=== PATIENT | male | born 1955 | race Caucasian/White ===

== ENCOUNTER 2018-11-05 12:33 | Inpatient (IN) ==
[2018-11-05] MEDS ORDERED: SODIUM CHLORIDE 0.9% 1,000 ML IV STA (13:09)
[2018-11-05 14:14] LABS: Basophils # 0.1 10*3/uL (0.0-0.2); Basophils % 0.8 % (0.0-0.8); Eosinophils # 0.6 10*3/uL (0.0-0.87); Eosinophils % 8.7 % (0.00-10.9); Hematocrit 22.7 VOL% (42.0-52.0); Immature Granulocytes % 0.5 %; Immature Granulocytes Absolute 0.03 #; Lymphocytes # 0.7 10*3/uL (1.4-4.0); Lymphocytes % 10.6 % (21.2-54.2); Mean Corpuscular HGB Conc 24.7 GM/DL (32-36); Mean Corpuscular Hemoglobin 13 PG (27-34); Mean Corpuscular Volume 54.3 FL (87-102); Monocytes # 0.5 10*3/uL (0.11-0.8); Monocytes % 8.1 % (1.7-12.7); NRBC # 0.02 10*3/uL; Neutrophils # 4.6 10*3/uL (1.4-7.4); Neutrophils % 71.3 % (38.7-73.9); Platelet Count 293 T/CUMM (130-400); Red Blood Count 4.18 MC/CUMM (3.8-5.5); White Blood Count 6.4 T/CUMM (4-12)
[2018-11-05 14:15] LABS: % Iron Saturation 1.9 % (18-50); Albumin 2.6 G/DL (3.4-5.0); Bilirubin,Total 0.4 MG/DL (0.2-1.0); Calcium 8.4 MG/DL (8.5-10.1); Ferritin 1.6 ng/ml (26-388); Osmolality,Calculated 275.7 MOS/KG (273-304); Potassium 3.3 MMOL/L (3.5-5.1); Thyroid Stimulating Hormone 0.566 uIU/ml (0.358-3.74)
[2018-11-05 14:16] LABS: Hemoglobin 5.6 GM/DL (14.0-18.0)
[2018-11-05 14:28] LABS: Folate 11.8 NG/ML (5.4-24.0); Vitamin B12 851 PG/ML (211-911)
[2018-11-05 15:11] LABS: Barbiturates Screen,Urine Negative (Negative); Benzodiazepines Screen,Urine Positive (Negative); Cannabinoid Screen,Urine Negative (Negative); Opiate Screen,Urine Positive (Negative); Phencyclidine Screen,Urine Negative (Negative)
[2018-11-05 15:23] LABS: Anisocytosis 1+; Hypochromasia 1+; Poikilocytosis 1+; Polychromasia Few
[2018-11-05 15:24] LABS: Microcytosis Slight; Ovalocytes 1+
[2018-11-05 15:27] LABS: Tear Drop Cells Few
[2018-11-05 15:31] LABS: Platelet Estimate Normal
[2018-11-05] MEDS ORDERED: ONDANSETRON 4 MG/2 ML VIAL IV PRN (15:52)
[2018-11-05] MEDS ORDERED: ACETAMINOPHEN 325 MG TABLET PO PRN (15:52)
[2018-11-05] MEDS ORDERED: NICOTINE 21 MG/24 HR PATCH TRANSDERM PRN (15:52)
[2018-11-05] MEDS ORDERED: guaiFENesin/DM ER 600-30 MG TABLET PO PRN (15:52)
[2018-11-05] MEDS ORDERED: SODIUM CHLORIDE 0.9% 1,000 ML IV PRN (16:00)
[2018-11-05] MEDS ORDERED: PHENYTOIN INJ 1,000 MG in SODIUM CHLORIDE 0.9% 100 ML IV STA (16:11)
[2018-11-05] MEDS ORDERED: MAGNESIUM SULF RIDER 4 GM in PREMIX 1 EACH IV PRN (16:26)
[2018-11-05] MEDS ORDERED: MAGNESIUM SULF RIDER 2 GM in PREMIX 1 EACH IV PRN (16:26)
[2018-11-05] MEDS ORDERED: FUROSEMIDE 20 MG/2 ML VIAL IV ONE (16:26)
[2018-11-05] MEDS ORDERED: POTASSIUM CHLORIDE RIDER 10 MEQ in PREMIX 1 EACH IV PRN (16:26)
[2018-11-05] MEDS ORDERED: THIAMINE INJ 100 MG, FOLIC ACID INJ 1 MG, MULTIVITAMIN INJ 10 ML in DEXTROSE 5% NACL 0.... IV SCH (16:30)
[2018-11-05 17:39] LABS: Rheumatoid Factor < 15 IU/ML (<15); Uric Acid 6.1 MG/DL (3.5-7.2)
[2018-11-05 17:54] LABS: Risk Ratio 2.31; VLDL CHOLESTEROL 12.4 MG/DL
[2018-11-05] MEDS: ALBUTEROL/IPRATROPIUM 3 ML NEB RESP TX SCH (20:28)
[2018-11-05] MEDS: SODIUM CHLORIDE 0.9% 1,000 ML IV SCH (20:28)
[2018-11-05] MEDS: CLINDAMYCIN INJ 600 MG in PREMIX 1 EACH IV SCH (20:29)
[2018-11-05] MEDS: chlordiazePOXIDE 25 MG CAPSULE PO SCH (20:31)
[2018-11-05] MEDS: CETIRIZINE 10 MG TABLET PO SCH (20:32)
[2018-11-05] MEDS: DOCUSATE SODIUM 100 MG CAPSULE PO SCH (20:32)
[2018-11-05] MEDS: hydrOXYzine HCL 25 MG TABLET PO PRN (20:32)
[2018-11-05] MEDS: CARVEDILOL 3.125 MG TABLET PO SCH (20:32)
[2018-11-05] MEDS ORDERED: CARVEDILOL 6.25 MG TABLET PO SCH (21:00)
[2018-11-05] MEDS: PHENYTOIN 100 MG/2 ML VIAL IV SCH (22:15)
[2018-11-05] MEDS: diphenhydrAMINE CAP 25 MG CAPSULE PO PRN (23:25)
[2018-11-06] MEDS: ALBUTEROL/IPRATROPIUM 3 ML NEB RESP TX SCH ×4 (00:41→19:52)
[2018-11-06] MEDS: CLINDAMYCIN INJ 600 MG in PREMIX 1 EACH IV SCH ×3 (05:05→21:08)
[2018-11-06] MEDS: PHENYTOIN 100 MG/2 ML VIAL IV SCH ×3 (05:11→22:08)
[2018-11-06] MEDS: chlordiazePOXIDE 25 MG CAPSULE PO SCH ×3 (05:33→21:08)
[2018-11-06 07:22] LABS: Albumin 2.6 G/DL (3.4-5.0); Bilirubin,Total 1.3 MG/DL (0.2-1.0); Calcium 7.6 MG/DL (8.5-10.1); Osmolality,Calculated 276.5 MOS/KG (273-304); Potassium 3.5 MMOL/L (3.5-5.1); Total Protein 5.7 G/DL (6.4-8.3)
[2018-11-06 07:32] LABS: Basophils % 0.6 % (0.0-0.8); Eosinophils # 0.7 10*3/uL (0.0-0.87); Eosinophils % 9.9 % (0.00-10.9); Hematocrit 26.3 VOL% (42.0-52.0); Hemoglobin 6.9 GM/DL (14.0-18.0); Immature Granulocytes % 0.3 %; Immature Granulocytes Absolute 0.02 #; Lymphocytes % 15.7 % (21.2-54.2); Mean Corpuscular HGB Conc 26.2 GM/DL (32-36); Mean Corpuscular Hemoglobin 15 PG (27-34); Mean Corpuscular Volume 58.2 FL (87-102); Monocytes # 0.8 10*3/uL (0.11-0.8); Monocytes % 11.4 % (1.7-12.7); NRBC # 0.03 10*3/uL; Neutrophils # 4.1 10*3/uL (1.4-7.4); Neutrophils % 62.1 % (38.7-73.9); Platelet Count 281 T/CUMM (130-400); Red Blood Count 4.52 MC/CUMM (3.8-5.5); Red Cell Distribution Width 27.4 % (9.3-17.3); White Blood Count 6.6 T/CUMM (4-12)
[2018-11-06 07:35] LABS: Anisocytosis 1+; Platelet Estimate Normal; Poikilocytosis 1+; Polychromasia Slight
[2018-11-06 07:36] LABS: Hypochromasia 1+; Ovalocytes 1+; Tear Drop Cells Few
[2018-11-06] MEDS ORDERED: SODIUM CHLORIDE 0.9% 1,000 ML IV PRN ×2 (08:22→09:45)
[2018-11-06] MEDS: diphenhydrAMINE CAP 25 MG CAPSULE PO PRN ×2 (08:32→19:49)
[2018-11-06] MEDS ORDERED: LINDANE 1% TOP ONE (08:58)
[2018-11-06] MEDS: CARVEDILOL 3.125 MG TABLET PO SCH ×2 (10:18→17:47)
[2018-11-06] MEDS: FOLIC ACID 1 MG TABLET PO SCH (10:53)
[2018-11-06] MEDS: DOCUSATE SODIUM 100 MG CAPSULE PO SCH ×2 (10:53→21:08)
[2018-11-06] MEDS: CETIRIZINE 10 MG TABLET PO SCH (10:54)
[2018-11-06] MEDS: PANTOPRAZOLE 40 MG TABLET PO SCH (10:54)
[2018-11-06] MEDS: THIAMINE 200 MG/2 ML VIAL IV SCH (10:54)
[2018-11-06] MEDS: PERMETHRIN 5% CREAM 60 GM TUBE TOP SCH (12:23)
[2018-11-06] MEDS: SODIUM CHLORIDE 0.9% 1,000 ML IV SCH (21:09)
[2018-11-07] MEDS: PERMETHRIN 5% CREAM 60 GM TUBE TOP SCH ×3 (00:52→21:41)
[2018-11-07] MEDS: ALBUTEROL/IPRATROPIUM 3 ML NEB RESP TX SCH ×4 (01:02→19:30)
[2018-11-07] MEDS: diphenhydrAMINE CAP 25 MG CAPSULE PO PRN ×2 (03:56→19:20)
[2018-11-07] MEDS: CLINDAMYCIN INJ 600 MG in PREMIX 1 EACH IV SCH ×3 (04:54→21:35)
[2018-11-07] MEDS: chlordiazePOXIDE 25 MG CAPSULE PO SCH ×3 (06:09→21:37)
[2018-11-07] MEDS: PHENYTOIN 100 MG/2 ML VIAL IV SCH ×3 (06:16→21:45)
[2018-11-07 06:21] LABS: Basophils # 0.1 10*3/uL (0.0-0.2); Basophils % 0.7 % (0.0-0.8); Eosinophils # 0.7 10*3/uL (0.0-0.87); Eosinophils % 7.3 % (0.00-10.9); Hematocrit 29.7 VOL% (42.0-52.0); Hemoglobin 8.4 GM/DL (14.0-18.0); Immature Granulocytes % 0.5 %; Immature Granulocytes Absolute 0.05 #; Lymphocytes # 1.1 10*3/uL (1.4-4.0); Lymphocytes % 10.9 % (21.2-54.2); Mean Corpuscular HGB Conc 28.3 GM/DL (32-36); Mean Corpuscular Hemoglobin 17 PG (27-34); Mean Corpuscular Volume 61.6 FL (87-102); Monocytes # 0.9 10*3/uL (0.11-0.8); Monocytes % 8.5 % (1.7-12.7); NRBC # 0.02 10*3/uL; Neutrophils # 7.2 10*3/uL (1.4-7.4); Neutrophils % 72.1 % (38.7-73.9); Platelet Count 283 T/CUMM (130-400); Red Blood Count 4.82 MC/CUMM (3.8-5.5); Red Cell Distribution Width 31.3 % (9.3-17.3)
[2018-11-07] MEDS: DOCUSATE SODIUM 100 MG CAPSULE PO SCH ×3 (06:38→21:38)
[2018-11-07 06:42] LABS: Albumin 2.5 G/DL (3.4-5.0); Bilirubin,Total 0.9 MG/DL (0.2-1.0); Calcium 8.4 MG/DL (8.5-10.1); Osmolality,Calculated 277.5 MOS/KG (273-304); Potassium 3.2 MMOL/L (3.5-5.1); Total Protein 5.7 G/DL (6.4-8.3)
[2018-11-07 06:48] LABS: Hypochromasia 1+; Microcytosis 1+; Platelet Estimate Adequate; Polychromasia Few
[2018-11-07 06:49] LABS: Elliptocytes Few
[2018-11-07] MEDS: FOLIC ACID 1 MG TABLET PO SCH (09:58)
[2018-11-07] MEDS: THIAMINE 200 MG/2 ML VIAL IV SCH (09:58)
[2018-11-07] MEDS: CARVEDILOL 3.125 MG TABLET PO SCH ×2 (09:58→17:55)
[2018-11-07] MEDS: PANTOPRAZOLE 40 MG TABLET PO SCH (09:58)
[2018-11-07] MEDS: CETIRIZINE 10 MG TABLET PO SCH (09:58)
[2018-11-07] MEDS ORDERED: IRON SUCROSE 300 MG in SODIUM CHLORIDE 0.9% 100 ML IV ONE (10:55)
[2018-11-07] MEDS ORDERED: FUROSEMIDE 20 MG/2 ML VIAL IV ONE (17:56)
[2018-11-08] MEDS: ALBUTEROL/IPRATROPIUM 3 ML NEB RESP TX SCH ×2 (00:29→07:06)
[2018-11-08] MEDS: chlordiazePOXIDE 25 MG CAPSULE PO SCH (03:57)
[2018-11-08] MEDS: diphenhydrAMINE CAP 25 MG CAPSULE PO PRN (03:57)
[2018-11-08] MEDS: CLINDAMYCIN INJ 600 MG in PREMIX 1 EACH IV SCH (03:58)
[2018-11-08] MEDS: PHENYTOIN 100 MG/2 ML VIAL IV SCH (05:26)
[2018-11-08 06:19] LABS: Basophils # 0.1 10*3/uL (0.0-0.2); Basophils % 0.8 % (0.0-0.8); Eosinophils % 12.8 % (0.00-10.9); Hematocrit 31.1 VOL% (42.0-52.0); Immature Granulocytes % 0.3 %; Immature Granulocytes Absolute 0.02 #; Lymphocytes # 1.4 10*3/uL (1.4-4.0); Lymphocytes % 18.8 % (21.2-54.2); Mean Corpuscular HGB Conc 27.7 GM/DL (32-36); Mean Corpuscular Hemoglobin 17 PG (27-34); Mean Corpuscular Volume 62.4 FL (87-102); Monocytes # 0.9 10*3/uL (0.11-0.8); Monocytes % 11.1 % (1.7-12.7); NRBC # 0.02 10*3/uL; Neutrophils # 4.3 10*3/uL (1.4-7.4); Neutrophils % 56.2 % (38.7-73.9); Platelet Count 204 T/CUMM (130-400); Red Blood Count 4.98 MC/CUMM (3.8-5.5); Red Cell Distribution Width 32.3 % (9.3-17.3); White Blood Count 7.7 T/CUMM (4-12)
[2018-11-08 06:22] LABS: Hemoglobin 8.6 GM/DL (14.0-18.0)
[2018-11-08 06:35] LABS: Bilirubin,Total 0.5 MG/DL (0.2-1.0); Calcium 7.9 MG/DL (8.5-10.1); Osmolality,Calculated 276.7 MOS/KG (273-304); Potassium 3.1 MMOL/L (3.5-5.1); Total Protein 5.4 G/DL (6.4-8.3)
[2018-11-08] MEDS: hydrOXYzine HCL 25 MG TABLET PO PRN (08:11)
[2018-11-08 08:47] VITALS: BP 147/60
[2018-11-08] MEDS ORDERED: chlordiazePOXIDE 25 MG CAPSULE PO SCH (09:00)
[2018-11-08] MEDS ORDERED: MULTIVITAMIN (CENTRUM) TABLET PO SCH (09:00)
[2018-11-08] MEDS: CARVEDILOL 3.125 MG TABLET PO SCH (10:08)
[2018-11-08] MEDS: PANTOPRAZOLE 40 MG TABLET PO SCH (10:08)
[2018-11-08] MEDS: CETIRIZINE 10 MG TABLET PO SCH (10:08)
[2018-11-08] MEDS: PERMETHRIN 5% CREAM 60 GM TUBE TOP SCH (10:08)
[2018-11-08] MEDS: DOCUSATE SODIUM 100 MG CAPSULE PO SCH (10:08)
[2018-11-08 11:30] LABS: Band Neutrophils 2 % (0-10); Elliptocytes 1+; Eosinophils 2 % (0-10); Lymphocytes 31 % (20-55); Polychromasia Slight; Segmented Neutrophils 65 % (50-85); Total Cells Counted 100
[2018-11-08 11:31] LABS: Hypochromasia 3+; Poikilocytosis 3+; Schistocytes Few; Spherocytes Slight; Tear Drop Cells Few
[2018-11-08] MEDS ORDERED: CLINDAMYCIN 150 MG CAPSULE PO SCH (14:00)
[2018-11-08] MEDS: SODIUM CHLORIDE 0.9% 1,000 ML IV SCH (14:19)
[2018-11-08] MEDS ORDERED: PHENYTOIN ER 100 MG CAPSULE PO SCH (21:00)
== END 2018-11-08 13:33 | disposition home or self-care (01) | DRG 812 ==
LOC: N.ED 12:33 → SUATTDRO 15:52 → N.EDINP 15:52 → N.3E 18:15
PROVIDERS: ADMIT Internal Medicine Nephrology; ATTEND Internal Medicine

== ENCOUNTER 2018-11-13 10:39 | Inpatient (IN) ==
[2018-11-13] MEDS ORDERED: METOCLOPRAMIDE 10 MG/2 ML VIAL IV STA (11:20)
[2018-11-13] MEDS ORDERED: SODIUM CHLORIDE 0.9% 500 ML IV STA (11:20)
[2018-11-13] MEDS ORDERED: ONDANSETRON 4 MG/2 ML VIAL IV STA (11:20)
[2018-11-13] MEDS ORDERED: PANTOPRAZOLE 40 MG VIAL IV STA (11:20)
[2018-11-13] MEDS ORDERED: DICYCLOMINE 20 MG/2 ML AMP IM ONE (11:20)
[2018-11-13] MEDS ORDERED: cefTRIAXone 1,000 MG in SODIUM CHLORIDE 0.9% 100 ML IV STA (12:24)
[2018-11-13] MEDS ORDERED: SODIUM CHLORIDE 0.9% 1,000 ML IV STA (12:24)
[2018-11-13] MEDS ORDERED: metroNIDAZOLE INJ 500 MG in PREMIX 1 EACH IV STA (12:24)
[2018-11-13 12:28] LABS: INR 1.1; PT Patient Result 12.2 SECS
[2018-11-13 12:37] LABS: Alanine Aminotransferase 15 U/L (16-61); Alkaline Phosphatase 113 U/L (45-117); Aspartate Amino Transferase 23 U/L (0-37); Blood Urea Nitrogen 18 MG/DL (7-18); Calcium 9.7 MG/DL (8.5-10.1); Glucose 153 MG/DL (74-106); Potassium 3.9 MMOL/L (3.5-5.1); Sodium 136 MMOL/L (136-145); Total Protein 7.5 G/DL (6.4-8.3); Troponin I < 0.015 NG/ML (0.00-0.045)
[2018-11-13 12:50] LABS: Basophils # 0.1 10*3/uL (0.0-0.2); Basophils % 0.2 % (0.0-0.8); Hematocrit 44.7 VOL% (42.0-52.0); Immature Granulocytes % 0.8 %; Immature Granulocytes Absolute 0.19 #; Mean Corpuscular Hemoglobin 18 PG (27-34); Mean Corpuscular Volume 64.7 FL (87-102); Monocytes % 3.9 % (1.7-12.7); Neutrophils # 22.7 10*3/uL (1.4-7.4); Neutrophils % 91.1 % (38.7-73.9); Platelet Count 401 T/CUMM (130-400); Red Blood Count 6.91 MC/CUMM (3.8-5.5); White Blood Count 24.9 T/CUMM (4-12)
[2018-11-13 12:51] LABS: Hemoglobin 12.5 GM/DL (14.0-18.0)
[2018-11-13 13:05] LABS: Anisocytosis 1+; Band Neutrophils 8 % (0-10); Hypochromasia 1+; Lymphocytes 3 % (20-55); Platelet Estimate Normal; Segmented Neutrophils 87 % (50-85); Total Cells Counted 100
[2018-11-13 13:06] LABS: Ovalocytes Few
[2018-11-13] MEDS ORDERED: hydrALAZINE 20 MG/1 ML VIAL IV PRN (14:49)
[2018-11-13] MEDS: SODIUM CHLORIDE 0.9% 1,000 ML IV SCH (17:36)
[2018-11-13] MEDS: LEVOFLOXACIN INJ 750 MG in PREMIX 1 EACH IV SCH (17:37)
[2018-11-13] MEDS: CHLORHEXIDINE 4% SOLN 118 ML BOTTLE TOP SCH ×2 (17:38→17:58)
[2018-11-13] MEDS: SKIN HEALING OINT (AQUAPHOR) 50 GM TUBE TOP PRN (17:58)
[2018-11-13] MEDS: MORPHINE 4 MG/1 ML VIAL IV PRN ×2 (17:58→21:37)
[2018-11-13] MEDS: PIPERACILLIN/TAZOBACTAM 3,375 MG in SODIUM CHLORIDE 0.9% 100 ML IV SCH (19:08)
[2018-11-13] MEDS: ALBUTEROL/IPRATROPIUM 3 ML NEB RESP TX SCH (19:47)
[2018-11-13] MEDS ORDERED: PHENOL 1.4% THROAT SPRAY 177 ML BOTTLE PO PRN (23:15)
[2018-11-14] MEDS: LORazepam 2 MG/1 ML VIAL IV PRN (00:08)
[2018-11-14] MEDS: ALBUTEROL/IPRATROPIUM 3 ML NEB RESP TX SCH ×4 (01:03→19:22)
[2018-11-14] MEDS: PIPERACILLIN/TAZOBACTAM 3,375 MG in SODIUM CHLORIDE 0.9% 100 ML IV SCH ×3 (01:27→18:13)
[2018-11-14 06:24] LABS: Calcium 8.8 MG/DL (8.5-10.1); Osmolality,Calculated 286.3 MOS/KG (273-304); Potassium 4.7 MMOL/L (3.5-5.1)
[2018-11-14 06:31] LABS: Basophils % 0.2 % (0.0-0.8); Eosinophils # 0.1 10*3/uL (0.0-0.87); Eosinophils % 0.5 % (0.00-10.9); Hematocrit 39.3 VOL% (42.0-52.0); Hemoglobin 10.6 GM/DL (14.0-18.0); Immature Granulocytes % 0.6 %; Lymphocytes # 1.2 10*3/uL (1.4-4.0); Lymphocytes % 6.6 % (21.2-54.2); Mean Corpuscular Hemoglobin 18 PG (27-34); Mean Corpuscular Volume 66.6 FL (87-102); Monocytes # 1.3 10*3/uL (0.11-0.8); Monocytes % 7.2 % (1.7-12.7); Neutrophils # 14.7 10*3/uL (1.4-7.4); Neutrophils % 84.9 % (38.7-73.9); Platelet Count 390 T/CUMM (130-400); White Blood Count 17.3 T/CUMM (4-12)
[2018-11-14 06:40] LABS: Hypochromasia 1+; Platelet Estimate Adequate
[2018-11-14] MEDS: ONDANSETRON 4 MG/2 ML VIAL IV PRN ×3 (06:43→16:02)
[2018-11-14] MEDS: MORPHINE 4 MG/1 ML VIAL IV PRN ×3 (06:43→16:03)
[2018-11-14] MEDS: SODIUM CHLORIDE 0.9% 1,000 ML IV SCH ×2 (07:59→17:05)
[2018-11-14] MEDS: PANTOPRAZOLE 40 MG VIAL IV SCH (09:06)
[2018-11-14] MEDS: CHLORHEXIDINE 4% SOLN 118 ML BOTTLE TOP SCH (09:09)
[2018-11-14] MEDS: SKIN HEALING OINT (AQUAPHOR) 50 GM TUBE TOP PRN (09:09)
[2018-11-14] MEDS: PHENYTOIN 100 MG/2 ML VIAL IV SCH ×2 (11:53→20:56)
[2018-11-15] MEDS: ALBUTEROL/IPRATROPIUM 3 ML NEB RESP TX SCH ×4 (00:06→19:46)
[2018-11-15] MEDS: MORPHINE 4 MG/1 ML VIAL IV PRN ×4 (01:30→22:36)
[2018-11-15] MEDS: PIPERACILLIN/TAZOBACTAM 3,375 MG in SODIUM CHLORIDE 0.9% 100 ML IV SCH ×3 (01:31→18:30)
[2018-11-15] MEDS: PHENYTOIN 100 MG/2 ML VIAL IV SCH ×2 (04:43→12:29)
[2018-11-15] MEDS: SODIUM CHLORIDE 0.9% 1,000 ML IV SCH ×2 (08:06→22:26)
[2018-11-15] MEDS: PANTOPRAZOLE 40 MG VIAL IV SCH (10:28)
[2018-11-15] MEDS: CHLORHEXIDINE 4% SOLN 118 ML BOTTLE TOP SCH (10:28)
[2018-11-15] MEDS ORDERED: BISACODYL 5 MG TABLET PO ONE (12:00)
[2018-11-15] MEDS: ONDANSETRON 4 MG/2 ML VIAL IV PRN (12:29)
[2018-11-15] MEDS: LEVOFLOXACIN INJ 750 MG in PREMIX 1 EACH IV SCH (16:13)
[2018-11-15] MEDS ORDERED: POLYETHYLENE GLYCOL 3350/ELECTROLYTES 4,000 ML BOTTLE PO ONE (18:00)
[2018-11-15] MEDS: PHENYTOIN INJ 100 MG in SODIUM CHLORIDE 0.9% 100 ML IV SCH (22:26)
[2018-11-16] MEDS: ALBUTEROL/IPRATROPIUM 3 ML NEB RESP TX SCH ×4 (00:48→19:47)
[2018-11-16] MEDS: PIPERACILLIN/TAZOBACTAM 3,375 MG in SODIUM CHLORIDE 0.9% 100 ML IV SCH ×3 (02:59→18:40)
[2018-11-16] MEDS: MORPHINE 4 MG/1 ML VIAL IV PRN ×3 (04:30→23:10)
[2018-11-16] MEDS: ONDANSETRON 4 MG/2 ML VIAL IV PRN ×2 (07:52→23:11)
[2018-11-16] MEDS: PANTOPRAZOLE 40 MG VIAL IV SCH (09:41)
[2018-11-16] MEDS: PHENYTOIN 100 MG/2 ML VIAL IV SCH ×3 (09:41→23:09)
[2018-11-16] MEDS: CHLORHEXIDINE 4% SOLN 118 ML BOTTLE TOP SCH (11:02)
[2018-11-16] MEDS: PHENYTOIN INJ 100 MG in SODIUM CHLORIDE 0.9% 100 ML IV SCH (11:35)
[2018-11-16 12:49] LABS: Calcium 8.2 MG/DL (8.5-10.1); Potassium 3.7 MMOL/L (3.5-5.1)
[2018-11-16 13:06] LABS: Basophils # 0.1 10*3/uL (0.0-0.2); Basophils % 0.4 % (0.0-0.8); Eosinophils # 0.3 10*3/uL (0.0-0.87); Eosinophils % 2.2 % (0.00-10.9); Hematocrit 37.5 VOL% (42.0-52.0); Immature Granulocytes % 0.7 %; Immature Granulocytes Absolute 0.09 #; Lymphocytes % 7.9 % (21.2-54.2); Mean Corpuscular Hemoglobin 18 PG (27-34); Mean Corpuscular Volume 65.7 FL (87-102); Monocytes # 1.1 10*3/uL (0.11-0.8); Monocytes % 8.7 % (1.7-12.7); Neutrophils # 10.1 10*3/uL (1.4-7.4); Neutrophils % 80.1 % (38.7-73.9); Platelet Count 487 T/CUMM (130-400); Red Blood Count 5.71 MC/CUMM (3.8-5.5); White Blood Count 12.6 T/CUMM (4-12)
[2018-11-16 13:08] LABS: Hemoglobin 10.5 GM/DL (14.0-18.0)
[2018-11-16 13:57] LABS: Eosinophils 2 % (0-10); Lymphocytes 8 % (20-55); Segmented Neutrophils 81 % (50-85); Total Cells Counted 100
[2018-11-16] MEDS ORDERED: ONDANSETRON 4 MG/2 ML VIAL IV PRN (15:06)
[2018-11-16] MEDS ORDERED: diphenhydrAMINE 50 MG/1 ML VIAL IV PRN (15:06)
[2018-11-16] MEDS ORDERED: PROMETHAZINE INJ 25 MG in SODIUM CHLORIDE 0.9% 50 ML IV PRN (15:06)
[2018-11-16] MEDS: SODIUM CHLORIDE 0.9% 1,000 ML IV SCH (15:56)
[2018-11-16] MEDS ORDERED: HYDROmorphone 2 MG/1 ML VIAL ONE (16:55)
[2018-11-16] MEDS: LACTATED RINGERS 1,000 ML IV SCH (16:55)
[2018-11-16] MEDS ORDERED: MEPERIDINE 25 MG/1 ML VIAL ONE ×2 (16:55→16:56)
[2018-11-16] MEDS ORDERED: ONDANSETRON 4 MG/2 ML VIAL ONE (16:56)
[2018-11-16] MEDS ORDERED: PROMETHAZINE 25 MG/1 ML VIAL ONE (16:56)
[2018-11-16] MEDS: MEPERIDINE 25 MG/1 ML VIAL IV PRN ×3 (17:00→18:34)
[2018-11-16 17:11] LABS: Amorphous Crystals,Urine Occasional /HPF (Few); Apearance,Urine CLOUDY (Clear); Bilirubin,Urine Negative (Negative); Blood, Urine Small mg/dL (Negative); Calcium Oxalate Crystals,Urine Many /HPF (Few); Glucose,Urine (UA) Negative (Negative); Ketones,Urine 20 mg/dL (Negative); Nitrite,Urine Negative (Negative); Protein,Urine Negative; Urine Urobilinogen < 2.0 EU/DL (0.2-1.0); WBC,Urine 38 /HPF (0-6)
[2018-11-16 17:12] LABS: Urine Color Yellow (Yellow)
[2018-11-16] MEDS: HYDROmorphone 2 MG/1 ML VIAL IV PRN ×4 (17:15→17:30)
[2018-11-16] MEDS ORDERED: ePHEDrine 50 MG/ML AMP ONE (18:30)
[2018-11-16] MEDS ORDERED: PROPOFOL 200 MG/20 ML VIAL IV ONE (18:35)
[2018-11-16] MEDS ORDERED: SEVOFLURANE 1 UNIT/15 MINUTE INH ONE (18:36)
[2018-11-16] MEDS ORDERED: ALBUMIN 5% 12.5 GM/250 ML VIAL IV ONE (18:36)
[2018-11-16] MEDS ORDERED: fentaNYL 100 MCG/2 ML VIAL ONE (18:36)
[2018-11-16] MEDS ORDERED: SUCCINYLCHOLINE 200 MG/10 ML VIAL ONE (18:37)
[2018-11-16] MEDS ORDERED: ACETAMINOPHEN 1,000 MG/100 ML VIAL IV ONE (18:37)
[2018-11-16] MEDS ORDERED: MIDAZOLAM 2 MG/2 ML VIAL ONE (18:37)
[2018-11-16] MEDS ORDERED: GLYCOPYRROLATE 0.4 MG/2 ML VIAL ONE (18:37)
[2018-11-16] MEDS ORDERED: ROCURONIUM 100 MG/10 ML VIAL IV ONE (18:37)
[2018-11-16] MEDS ORDERED: NEOSTIGMINE 10 MG/10 ML VIAL ONE (18:37)
[2018-11-16] MEDS ORDERED: PHENYLEPHRINE 1 MG/10 ML SYRINGE IV ONE (18:37)
[2018-11-16] MEDS ORDERED: LACTATED RINGERS 2,000 ML IV ONE (18:37)
[2018-11-16] MEDS ORDERED: MEPERIDINE 25 MG/1 ML VIAL IV STA (19:21)
[2018-11-16 20:16] LABS: Platelet Estimate Increased
[2018-11-16 20:17] LABS: Anisocytosis 1+; Giant Platelets Few; Hypochromasia 1+
[2018-11-16 20:18] LABS: Elliptocytes 1+; Ovalocytes 1+
[2018-11-16 20:19] LABS: Microcytosis 1+
[2018-11-16] MEDS: CLOTRIMAZOLE 1% CREAM 15 GM TUBE TOP SCH (23:10)
[2018-11-17] MEDS: ALBUTEROL/IPRATROPIUM 3 ML NEB RESP TX SCH ×4 (01:19→19:09)
[2018-11-17] MEDS: PIPERACILLIN/TAZOBACTAM 3,375 MG in SODIUM CHLORIDE 0.9% 100 ML IV SCH ×3 (02:21→17:07)
[2018-11-17] MEDS: MORPHINE 4 MG/1 ML VIAL IV PRN ×3 (02:41→10:14)
[2018-11-17 06:45] LABS: Basophils # 0.1 10*3/uL (0.0-0.2); Basophils % 0.5 % (0.0-0.8); Eosinophils # 0.2 10*3/uL (0.0-0.87); Eosinophils % 1.3 % (0.00-10.9); Immature Granulocytes % 0.5 %; Immature Granulocytes Absolute 0.07 #; Lymphocytes % 7.9 % (21.2-54.2); Mean Corpuscular HGB Conc 27.9 GM/DL (32-36); Mean Corpuscular Hemoglobin 19 PG (27-34); Mean Corpuscular Volume 66.4 FL (87-102); Monocytes # 1.2 10*3/uL (0.11-0.8); Monocytes % 8.9 % (1.7-12.7); Neutrophils # 10.4 10*3/uL (1.4-7.4); Neutrophils % 80.9 % (38.7-73.9); Platelet Count 483 T/CUMM (130-400); Red Blood Count 5.72 MC/CUMM (3.8-5.5); White Blood Count 12.9 T/CUMM (4-12)
[2018-11-17 06:48] LABS: Albumin 1.9 G/DL (3.4-5.0); Bilirubin,Total 1.4 MG/DL (0.2-1.0); Calcium 7.6 MG/DL (8.5-10.1); Osmolality,Calculated 274.7 MOS/KG (273-304); Potassium 4.1 MMOL/L (3.5-5.1)
[2018-11-17 06:49] LABS: Hemoglobin 10.6 GM/DL (14.0-18.0)
[2018-11-17] MEDS: ONDANSETRON 4 MG/2 ML VIAL IV PRN (06:57)
[2018-11-17] MEDS: PHENYTOIN 100 MG/2 ML VIAL IV SCH ×2 (06:57→14:43)
[2018-11-17 07:05] LABS: Hypochromasia 1+; Microcytosis 1+; Ovalocytes Slight; Platelet Estimate Adequate
[2018-11-17] MEDS: LACTATED RINGERS 1,000 ML IV SCH ×4 (07:14→20:16)
[2018-11-17] MEDS: CHLORHEXIDINE 4% SOLN 118 ML BOTTLE TOP SCH (09:19)
[2018-11-17] MEDS: CLOTRIMAZOLE 1% CREAM 15 GM TUBE TOP SCH ×2 (09:20→20:16)
[2018-11-17] MEDS: PANTOPRAZOLE 40 MG VIAL IV SCH (09:20)
[2018-11-17] MEDS: LEVOFLOXACIN INJ 750 MG in PREMIX 1 EACH IV SCH (10:24)
[2018-11-17] MEDS: LORazepam 2 MG/1 ML VIAL IV PRN (10:25)
[2018-11-17] MEDS: HYDROmorphone 2 MG/1 ML VIAL IV PRN ×2 (13:15→20:16)
[2018-11-18] MEDS: PHENYTOIN 100 MG/2 ML VIAL IV SCH ×3 (00:27→16:24)
[2018-11-18] MEDS: HYDROmorphone 2 MG/1 ML VIAL IV PRN ×4 (00:29→20:19)
[2018-11-18] MEDS: LORazepam 2 MG/1 ML VIAL IV PRN (00:48)
[2018-11-18] MEDS: ALBUTEROL/IPRATROPIUM 3 ML NEB RESP TX SCH ×5 (01:00→19:28)
[2018-11-18] MEDS: LACTATED RINGERS 1,000 ML IV SCH ×5 (02:32→20:27)
[2018-11-18] MEDS: PIPERACILLIN/TAZOBACTAM 3,375 MG in SODIUM CHLORIDE 0.9% 100 ML IV SCH ×3 (02:32→18:25)
[2018-11-18 05:05] LABS: Calcium 7.7 MG/DL (8.5-10.1); Osmolality,Calculated 273.8 MOS/KG (273-304); Potassium 3.8 MMOL/L (3.5-5.1)
[2018-11-18] MEDS: PANTOPRAZOLE 40 MG VIAL IV SCH (09:31)
[2018-11-18] MEDS: LEVOFLOXACIN INJ 750 MG in PREMIX 1 EACH IV SCH (09:31)
[2018-11-18] MEDS: CHLORHEXIDINE 4% SOLN 118 ML BOTTLE TOP SCH (09:32)
[2018-11-18] MEDS: CLOTRIMAZOLE 1% CREAM 15 GM TUBE TOP SCH ×2 (09:32→20:20)
[2018-11-18] MEDS: ONDANSETRON 4 MG/2 ML VIAL IV PRN (20:20)
[2018-11-19] MEDS: ALBUTEROL/IPRATROPIUM 3 ML NEB RESP TX SCH ×4 (00:26→19:24)
[2018-11-19] MEDS: HYDROmorphone 2 MG/1 ML VIAL IV PRN ×6 (00:40→20:11)
[2018-11-19] MEDS: PHENYTOIN 100 MG/2 ML VIAL IV SCH ×4 (00:41→23:04)
[2018-11-19] MEDS: PIPERACILLIN/TAZOBACTAM 3,375 MG in SODIUM CHLORIDE 0.9% 100 ML IV SCH ×2 (02:49→10:50)
[2018-11-19 05:31] LABS: Calcium 7.9 MG/DL (8.5-10.1); Potassium 3.8 MMOL/L (3.5-5.1)
[2018-11-19 05:40] LABS: Basophils # 0.1 10*3/uL (0.0-0.2); Basophils % 0.4 % (0.0-0.8); Eosinophils % 7.3 % (0.00-10.9); Immature Granulocytes % 0.6 %; Immature Granulocytes Absolute 0.08 #; Lymphocytes # 1.1 10*3/uL (1.4-4.0); Lymphocytes % 8.7 % (21.2-54.2); Mean Corpuscular HGB Conc 28.2 GM/DL (32-36); Mean Corpuscular Hemoglobin 19 PG (27-34); Mean Corpuscular Volume 66.7 FL (87-102); Monocytes # 1.1 10*3/uL (0.11-0.8); Monocytes % 8.7 % (1.7-12.7); Neutrophils # 9.7 10*3/uL (1.4-7.4); Neutrophils % 74.3 % (38.7-73.9); Platelet Count 588 T/CUMM (130-400); Red Blood Count 4.95 MC/CUMM (3.8-5.5); White Blood Count 13.1 T/CUMM (4-12)
[2018-11-19 05:43] LABS: Hemoglobin 9.3 GM/DL (14.0-18.0); Hypochromasia 1+; Microcytosis 1+; Platelet Estimate Increased; Poikilocytosis 1+
[2018-11-19 05:44] LABS: Polychromasia Few; Target Cells Few
[2018-11-19 05:45] LABS: Elliptocytes Few
[2018-11-19] MEDS: CLOTRIMAZOLE 1% CREAM 15 GM TUBE TOP SCH ×2 (08:22→21:30)
[2018-11-19] MEDS: LACTATED RINGERS 1,000 ML IV SCH ×2 (08:22→10:57)
[2018-11-19] MEDS: PANTOPRAZOLE 40 MG VIAL IV SCH (08:22)
[2018-11-19] MEDS: CHLORHEXIDINE 4% SOLN 118 ML BOTTLE TOP SCH (08:23)
[2018-11-19] MEDS: LEVOFLOXACIN INJ 750 MG in PREMIX 1 EACH IV SCH (09:09)
[2018-11-19] MEDS: diphenhydrAMINE CAP 25 MG CAPSULE PO PRN ×3 (10:50→21:31)
[2018-11-19] MEDS: ENOXAPARIN 40 MG/0.4 ML SYRINGE SUBCUT SCH (20:14)
[2018-11-20] MEDS: ALBUTEROL/IPRATROPIUM 3 ML NEB RESP TX SCH ×4 (00:42→19:28)
[2018-11-20] MEDS: diphenhydrAMINE CAP 25 MG CAPSULE PO PRN ×4 (03:52→23:31)
[2018-11-20] MEDS: HYDROmorphone 2 MG/1 ML VIAL IV PRN ×7 (03:52→23:31)
[2018-11-20 06:39] LABS: Calcium 7.8 MG/DL (8.5-10.1); Potassium 3.2 MMOL/L (3.5-5.1)
[2018-11-20 06:40] LABS: Basophils # 0.1 10*3/uL (0.0-0.2); Basophils % 0.6 % (0.0-0.8); Eosinophils # 1.2 10*3/uL (0.0-0.87); Hematocrit 31.3 VOL% (42.0-52.0); Immature Granulocytes % 0.5 %; Immature Granulocytes Absolute 0.05 #; Mean Corpuscular HGB Conc 27.8 GM/DL (32-36); Mean Corpuscular Hemoglobin 19 PG (27-34); Mean Corpuscular Volume 66.5 FL (87-102); Monocytes # 0.9 10*3/uL (0.11-0.8); Monocytes % 8.7 % (1.7-12.7); Neutrophils % 68.2 % (38.7-73.9); Platelet Count 675 T/CUMM (130-400); Red Blood Count 4.71 MC/CUMM (3.8-5.5); White Blood Count 10.3 T/CUMM (4-12)
[2018-11-20 06:46] LABS: Hemoglobin 8.8 GM/DL (14.0-18.0)
[2018-11-20] MEDS: PHENYTOIN 100 MG/2 ML VIAL IV SCH ×3 (06:53→22:46)
[2018-11-20] MEDS ORDERED: POTASSIUM CHLORIDE RIDER 10 MEQ in PREMIX 1 EACH IV PRN (07:34)
[2018-11-20 07:35] LABS: Eosinophils 13 % (0-10); Lymphocytes 6 % (20-55); Segmented Neutrophils 78 % (50-85); Total Cells Counted 100
[2018-11-20 07:36] LABS: Hypochromasia 1+; Microcytosis 1+; Ovalocytes Few
[2018-11-20 07:37] LABS: Tear Drop Cells Slight
[2018-11-20] MEDS: PANTOPRAZOLE 40 MG VIAL IV SCH (09:27)
[2018-11-20] MEDS: LEVOFLOXACIN INJ 750 MG in PREMIX 1 EACH IV SCH (09:28)
[2018-11-20] MEDS: CLOTRIMAZOLE 1% CREAM 15 GM TUBE TOP SCH ×2 (09:38→21:29)
[2018-11-20] MEDS: CHLORHEXIDINE 4% SOLN 118 ML BOTTLE TOP SCH (09:38)
[2018-11-20] MEDS ORDERED: POTASSIUM CHLORIDE 20 MEQ TABLET PO ONE (09:56)
[2018-11-20] MEDS: ENOXAPARIN 40 MG/0.4 ML SYRINGE SUBCUT SCH (21:18)
[2018-11-21] MEDS: ALBUTEROL/IPRATROPIUM 3 ML NEB RESP TX SCH ×2 (00:31→07:28)
[2018-11-21] MEDS: HYDROmorphone 2 MG/1 ML VIAL IV PRN ×3 (03:28→10:33)
[2018-11-21 06:48] LABS: Basophils # 0.1 10*3/uL (0.0-0.2); Basophils % 0.8 % (0.0-0.8); Eosinophils % 11.5 % (0.00-10.9); Hematocrit 32.9 VOL% (42.0-52.0); Hemoglobin 9.4 GM/DL (14.0-18.0); Immature Granulocytes % 0.5 %; Immature Granulocytes Absolute 0.04 #; Lymphocytes # 0.6 10*3/uL (1.4-4.0); Lymphocytes % 7.3 % (21.2-54.2); Mean Corpuscular HGB Conc 28.6 GM/DL (32-36); Mean Corpuscular Hemoglobin 19 PG (27-34); Mean Corpuscular Volume 66.3 FL (87-102); Monocytes # 0.7 10*3/uL (0.11-0.8); Monocytes % 8.7 % (1.7-12.7); Neutrophils # 6.1 10*3/uL (1.4-7.4); Neutrophils % 71.2 % (38.7-73.9); Platelet Count 762 T/CUMM (130-400); Red Blood Count 4.96 MC/CUMM (3.8-5.5); White Blood Count 8.6 T/CUMM (4-12)
[2018-11-21 07:08] LABS: Calcium 8.1 MG/DL (8.5-10.1); Potassium 3.5 MMOL/L (3.5-5.1)
[2018-11-21 07:25] LABS: Anisocytosis 1+; Band Neutrophils 1 % (0-10); Eosinophils 15 % (0-10); Lymphocytes 5 % (20-55); Platelet Estimate Increased; Poikilocytosis 1+; Polychromasia Slight; Segmented Neutrophils 69 % (50-85); Total Cells Counted 100
[2018-11-21] MEDS: diphenhydrAMINE CAP 25 MG CAPSULE PO PRN (07:42)
[2018-11-21] MEDS: PHENYTOIN 100 MG/2 ML VIAL IV SCH (07:43)
[2018-11-21] MEDS: LEVOFLOXACIN INJ 750 MG in PREMIX 1 EACH IV SCH (10:16)
[2018-11-21] MEDS: PANTOPRAZOLE 40 MG VIAL IV SCH (10:17)
[2018-11-21] MEDS: CLOTRIMAZOLE 1% CREAM 15 GM TUBE TOP SCH (13:57)
[2018-11-21] MEDS: CHLORHEXIDINE 4% SOLN 118 ML BOTTLE TOP SCH (13:57)
[2018-11-21 15:28] VITALS: BP 132/65
== END 2018-11-21 13:30 | disposition home health service (06) | DRG 329 ==
LOC: N.ED 10:39 → N.EDINP 14:38 → SUATTDRO 14:38 → N.5E 15:26
PROVIDERS: ADMIT Internal Medicine Nephrology; ATTEND Emergency Medicine

== ENCOUNTER 2019-06-03 06:26 | Inpatient (IN) ==
[2019-05-19 16:44] LABS: Calcium 9.2 MG/DL (8.5-10.1); Osmolality,Calculated 276.5 MOS/KG (273-304)
[2019-05-19 16:51] LABS: Basophils # 0.1 10*3/uL (0.0-0.2); Basophils % 0.6 % (0.0-0.8); Eosinophils # 0.8 10*3/uL (0.0-0.87); Eosinophils % 7.6 % (0.00-10.9); Hematocrit 45.5 VOL% (42.0-52.0); Hemoglobin 12.8 GM/DL (14.0-18.0); Immature Granulocytes % 0.3 %; Immature Granulocytes Absolute 0.03 #; Lymphocytes # 1.3 10*3/uL (1.4-4.0); Lymphocytes % 12.8 % (21.2-54.2); Mean Corpuscular HGB Conc 28.1 GM/DL (32-36); Mean Corpuscular Volume 68.1 FL (87-102); Mean Platelet Volume 9.9 FL (9.6-12.0); Monocytes % 9.2 % (1.7-12.7); Neutrophils % 69.5 % (38.7-73.9); Platelet Count 413 T/CUMM (130-400); Red Blood Count 6.68 MC/CUMM (3.8-5.5); White Blood Count 10.1 T/CUMM (4-12)
[2019-05-19 17:14] LABS: Anisocytosis Slight; Elliptocytes Few; Platelet Estimate Adequate
[~2019-06-03 06:26] MED LIST: ALVIMOPAN 12 MG CAPSULE ONE; ALVIMOPAN 12 MG CAPSULE PO ONE; cefOXitin 1,000 MG in SYRINGE 1 EACH IV ONE
[2019-06-03] MEDS ORDERED: LACTATED RINGERS 1,000 ML IV SCH (06:30)
[2019-06-03] MEDS ORDERED: FAMOTIDINE 20 MG TABLET PO ONE (07:26)
[2019-06-03] MEDS ORDERED: BUPIVACAINE MPF 0.25% /EPI 30 ML VIAL ONE (07:46)
[2019-06-03] MEDS ORDERED: LIDOCAINE 1% 20 ML VIAL ONE (07:46)
[2019-06-03] MEDS ORDERED: DEXAMETHASONE 4 MG/1 ML VIAL ONE (11:17)
[2019-06-03] MEDS ORDERED: fentaNYL 100 MCG/2 ML VIAL ONE (11:17)
[2019-06-03] MEDS ORDERED: SEVOFLURANE 1 UNIT/15 MINUTE INH ONE (11:17)
[2019-06-03] MEDS ORDERED: ONDANSETRON 4 MG/2 ML VIAL ONE ×2 (11:17→12:32)
[2019-06-03] MEDS ORDERED: PROPOFOL 200 MG/20 ML VIAL IV ONE (11:17)
[2019-06-03] MEDS ORDERED: ACETAMINOPHEN 1,000 MG/100 ML VIAL IV ONE (11:18)
[2019-06-03] MEDS ORDERED: LACTATED RINGERS 2,000 ML IV ONE (11:18)
[2019-06-03] MEDS ORDERED: NEOSTIGMINE 10 MG/10 ML VIAL ONE (11:18)
[2019-06-03] MEDS ORDERED: PHENYLEPHRINE 1 MG/10 ML SYRINGE IV ONE (11:18)
[2019-06-03] MEDS ORDERED: SUCCINYLCHOLINE 200 MG/10 ML VIAL ONE (11:18)
[2019-06-03] MEDS ORDERED: ROCURONIUM 100 MG/10 ML VIAL IV ONE (11:18)
[2019-06-03] MEDS ORDERED: LABETALOL 100 MG/20 ML VIAL IV ONE (11:18)
[2019-06-03] MEDS ORDERED: ETOMIDATE 40 MG/20 ML VIAL IV ONE (11:18)
[2019-06-03] MEDS ORDERED: GLYCOPYRROLATE 0.4 MG/2 ML VIAL ONE (11:18)
[2019-06-03] MEDS ORDERED: ONDANSETRON 4 MG/2 ML VIAL IV PRN ×2 (11:28→12:01)
[2019-06-03] MEDS ORDERED: HYDROmorphone 2 MG/1 ML VIAL IV PRN (11:28)
[2019-06-03] MEDS ORDERED: ACETAMINOPHEN 325 MG TABLET PO PRN (12:01)
[2019-06-03] MEDS ORDERED: ALBUTEROL/IPRATROPIUM 3 ML NEB RESP TX PRN (12:01)
[2019-06-03] MEDS ORDERED: KETOROLAC 15 MG/1 ML VIAL IV PRN (12:01)
[2019-06-03] MEDS ORDERED: HYDROmorphone 2 MG/1 ML VIAL ONE (12:32)
[2019-06-03] MEDS ORDERED: LORazepam 2 MG/1 ML VIAL ONE (12:48)
[2019-06-03] MEDS ORDERED: LORazepam 2 MG/1 ML VIAL IV ONE (12:52)
[2019-06-03] MEDS: LACTATED RINGERS 1,000 ML IV SCH ×2 (14:10→19:57)
[2019-06-03] MEDS: ALPRAZolam 0.5 MG TABLET PO SCH ×2 (17:02→22:04)
[2019-06-03] MEDS: busPIRone 10 MG TABLET PO SCH ×2 (17:02→22:04)
[2019-06-03] MEDS: cefOXitin 2,000 MG in SYRINGE 1 EACH IV SCH ×2 (17:17→22:46)
[2019-06-03] MEDS: HYDROmorphone 2 MG/1 ML VIAL IV PRN (20:37)
[2019-06-03] MEDS: levETIRAcetam 500 MG TABLET PO SCH (22:04)
[2019-06-03] MEDS: GABAPENTIN 600 MG TABLET PO SCH (22:04)
[2019-06-03] MEDS: DULoxetine 30 MG CAPSULE PO SCH (22:04)
[2019-06-04] MEDS: HYDROmorphone 2 MG/1 ML VIAL IV PRN ×5 (00:42→19:42)
[2019-06-04] MEDS: LACTATED RINGERS 1,000 ML IV SCH ×2 (03:50→15:45)
[2019-06-04] MEDS: cefOXitin 2,000 MG in SYRINGE 1 EACH IV SCH (05:11)
[2019-06-04 05:36] LABS: Basophils % 0.1 % (0.0-0.8); Hematocrit 38.1 VOL% (42.0-52.0); Immature Granulocytes % 0.4 %; Immature Granulocytes Absolute 0.05 #; Lymphocytes # 0.9 10*3/uL (1.4-4.0); Lymphocytes % 6.2 % (21.2-54.2); Mean Corpuscular HGB Conc 28.6 GM/DL (32-36); Mean Corpuscular Volume 68.3 FL (87-102); Mean Platelet Volume 10.5 FL (9.6-12.0); Monocytes % 7.7 % (1.7-12.7); Neutrophils % 85.6 % (38.7-73.9); Platelet Count 341 T/CUMM (130-400); Red Blood Count 5.58 MC/CUMM (3.8-5.5); Red Cell Distribution Width 19.6 % (9.3-17.3); White Blood Count 14.1 T/CUMM (4-12)
[2019-06-04 06:01] LABS: Calcium 8.3 MG/DL (8.5-10.1); Osmolality,Calculated 278.5 MOS/KG (273-304)
[2019-06-04 06:10] LABS: Hypochromasia 1+; Ovalocytes Slight; Platelet Estimate Adequate
[2019-06-04] MEDS: DULoxetine 30 MG CAPSULE PO SCH ×2 (08:42→21:04)
[2019-06-04] MEDS: GABAPENTIN 600 MG TABLET PO SCH ×2 (08:42→21:04)
[2019-06-04] MEDS: busPIRone 10 MG TABLET PO SCH ×4 (08:42→21:04)
[2019-06-04] MEDS: ALPRAZolam 0.5 MG TABLET PO SCH ×5 (08:42→21:04)
[2019-06-04] MEDS: levETIRAcetam 500 MG TABLET PO SCH ×2 (08:43→21:04)
[2019-06-04] MEDS: ENOXAPARIN 40 MG/0.4 ML SYRINGE SUBCUT SCH (08:43)
[2019-06-04] MEDS: FAMOTIDINE 20 MG/2 ML VIAL IV SCH ×2 (08:44→21:05)
[2019-06-04] MEDS ORDERED: KETOROLAC 30 MG/1 ML VIAL IV ONE (11:04)
[2019-06-04] MEDS: KETOROLAC 15 MG/1 ML VIAL IV SCH (16:25)
[2019-06-04] MEDS: MUPIROCIN 2% OINT 22 GM TUBE TOP SCH (21:04)
[2019-06-05] MEDS: LACTATED RINGERS 1,000 ML IV SCH ×4 (00:54→21:18)
[2019-06-05] MEDS: HYDROmorphone 2 MG/1 ML VIAL IV PRN ×2 (01:34→16:47)
[2019-06-05] MEDS: KETOROLAC 15 MG/1 ML VIAL IV SCH ×5 (01:52→22:23)
[2019-06-05 05:57] LABS: Calcium 8.1 MG/DL (8.5-10.1); Osmolality,Calculated 280.5 MOS/KG (273-304)
[2019-06-05 06:03] LABS: Basophils # 0.1 10*3/uL (0.0-0.2); Basophils % 0.4 % (0.0-0.8); Eosinophils # 0.1 10*3/uL (0.0-0.87); Hematocrit 31.9 VOL% (42.0-52.0); Hemoglobin 9.1 GM/DL (14.0-18.0); Immature Granulocytes % 0.6 %; Immature Granulocytes Absolute 0.08 #; Lymphocytes # 0.9 10*3/uL (1.4-4.0); Lymphocytes % 6.8 % (21.2-54.2); Mean Corpuscular HGB Conc 28.5 GM/DL (32-36); Mean Corpuscular Volume 70.1 FL (87-102); Mean Platelet Volume 10.7 FL (9.6-12.0); Monocytes % 9.8 % (1.7-12.7); Neutrophils % 81.4 % (38.7-73.9); Platelet Count 312 T/CUMM (130-400); Red Blood Count 4.55 MC/CUMM (3.8-5.5); Red Cell Distribution Width 19.1 % (9.3-17.3); White Blood Count 12.6 T/CUMM (4-12)
[2019-06-05] MEDS: ENOXAPARIN 40 MG/0.4 ML SYRINGE SUBCUT SCH (08:21)
[2019-06-05] MEDS: DULoxetine 30 MG CAPSULE PO SCH ×2 (09:33→21:06)
[2019-06-05] MEDS: levETIRAcetam 500 MG TABLET PO SCH ×2 (09:33→21:06)
[2019-06-05] MEDS: GABAPENTIN 600 MG TABLET PO SCH ×2 (09:34→21:05)
[2019-06-05] MEDS: busPIRone 10 MG TABLET PO SCH ×3 (09:34→21:05)
[2019-06-05] MEDS: ALPRAZolam 0.5 MG TABLET PO SCH ×3 (09:34→20:19)
[2019-06-05] MEDS: MUPIROCIN 2% OINT 22 GM TUBE TOP SCH ×2 (09:35→22:26)
[2019-06-05] MEDS: FAMOTIDINE 20 MG/2 ML VIAL IV SCH ×2 (09:35→21:07)
[2019-06-06] MEDS: HYDROmorphone 2 MG/1 ML VIAL IV PRN ×2 (02:28→09:12)
[2019-06-06] MEDS: KETOROLAC 15 MG/1 ML VIAL IV SCH ×4 (04:11→23:39)
[2019-06-06] MEDS: LACTATED RINGERS 1,000 ML IV SCH ×2 (05:17→13:50)
[2019-06-06] MEDS: ENOXAPARIN 40 MG/0.4 ML SYRINGE SUBCUT SCH (09:04)
[2019-06-06] MEDS: ALPRAZolam 0.5 MG TABLET PO SCH ×3 (09:10→20:56)
[2019-06-06] MEDS: levETIRAcetam 500 MG TABLET PO SCH ×2 (09:11→20:55)
[2019-06-06] MEDS: busPIRone 10 MG TABLET PO SCH ×3 (09:12→20:55)
[2019-06-06] MEDS: GABAPENTIN 600 MG TABLET PO SCH ×2 (09:12→20:56)
[2019-06-06] MEDS: DULoxetine 30 MG CAPSULE PO SCH ×2 (09:12→20:55)
[2019-06-06] MEDS: FAMOTIDINE 20 MG/2 ML VIAL IV SCH ×2 (09:13→20:56)
[2019-06-06] MEDS: MUPIROCIN 2% OINT 22 GM TUBE TOP SCH ×2 (09:31→20:54)
[2019-06-06] MEDS: hydrALAZINE 20 MG/1 ML VIAL IV PRN (20:54)
[2019-06-07] MEDS: ALPRAZolam 0.5 MG TABLET PO SCH ×4 (02:33→21:52)
[2019-06-07 04:59] LABS: Basophils % 0.3 % (0.0-0.8); Eosinophils # 0.3 10*3/uL (0.0-0.87); Eosinophils % 4.5 % (0.00-10.9); Immature Granulocytes % 0.5 %; Immature Granulocytes Absolute 0.04 #; Lymphocytes # 0.6 10*3/uL (1.4-4.0); Lymphocytes % 8.6 % (21.2-54.2); Mean Corpuscular HGB Conc 28.6 GM/DL (32-36); Mean Corpuscular Volume 69.8 FL (87-102); Mean Platelet Volume 10.3 FL (9.6-12.0); Monocytes % 10.3 % (1.7-12.7); Neutrophils % 75.8 % (38.7-73.9); Platelet Count 276 T/CUMM (130-400); Red Blood Count 4.01 MC/CUMM (3.8-5.5); Red Cell Distribution Width 19.1 % (9.3-17.3); White Blood Count 7.4 T/CUMM (4-12)
[2019-06-07] MEDS: KETOROLAC 15 MG/1 ML VIAL IV SCH ×5 (05:25→22:03)
[2019-06-07 05:27] LABS: Hypochromasia 1+; Platelet Estimate Adequate
[2019-06-07] MEDS: HYDROmorphone 2 MG/1 ML VIAL IV PRN ×2 (09:05→16:04)
[2019-06-07] MEDS: ENOXAPARIN 40 MG/0.4 ML SYRINGE SUBCUT SCH (09:05)
[2019-06-07] MEDS: busPIRone 10 MG TABLET PO SCH ×3 (09:59→21:52)
[2019-06-07] MEDS: DULoxetine 30 MG CAPSULE PO SCH ×2 (09:59→21:52)
[2019-06-07] MEDS: GABAPENTIN 600 MG TABLET PO SCH ×2 (09:59→21:52)
[2019-06-07] MEDS: FAMOTIDINE 20 MG/2 ML VIAL IV SCH ×2 (09:59→21:45)
[2019-06-07] MEDS: levETIRAcetam 500 MG TABLET PO SCH ×2 (10:02→21:52)
[2019-06-07] MEDS: MUPIROCIN 2% OINT 22 GM TUBE TOP SCH ×2 (10:03→21:52)
[2019-06-07] MEDS ORDERED: cefOXitin 2,000 MG in SYRINGE 1 EACH IV ONE (10:13)
[2019-06-07] MEDS: hydrALAZINE 20 MG/1 ML VIAL IV PRN (12:26)
[2019-06-07] MEDS ORDERED: MIDAZOLAM 2 MG/2 ML VIAL ONE (14:32)
[2019-06-07] MEDS ORDERED: SEVOFLURANE 1 UNIT/15 MINUTE INH ONE (14:32)
[2019-06-07] MEDS ORDERED: PROPOFOL 200 MG/20 ML VIAL IV ONE (14:32)
[2019-06-07] MEDS ORDERED: ROCURONIUM 100 MG/10 ML VIAL IV ONE (14:33)
[2019-06-07] MEDS ORDERED: SUCCINYLCHOLINE 200 MG/10 ML VIAL ONE (14:33)
[2019-06-07] MEDS ORDERED: NEOSTIGMINE 10 MG/10 ML VIAL ONE (14:33)
[2019-06-07] MEDS ORDERED: fentaNYL 100 MCG/2 ML VIAL ONE (14:33)
[2019-06-07] MEDS ORDERED: GLYCOPYRROLATE 0.4 MG/2 ML VIAL ONE (14:33)
[2019-06-08 04:46] LABS: Basophils % 0.4 % (0.0-0.8); Eosinophils # 0.4 10*3/uL (0.0-0.87); Eosinophils % 4.5 % (0.00-10.9); Hematocrit 26.4 VOL% (42.0-52.0); Hemoglobin 7.5 GM/DL (14.0-18.0); Immature Granulocytes % 0.7 %; Immature Granulocytes Absolute 0.06 #; Lymphocytes # 0.7 10*3/uL (1.4-4.0); Lymphocytes % 7.8 % (21.2-54.2); Mean Corpuscular HGB Conc 28.4 GM/DL (32-36); Mean Corpuscular Volume 70.2 FL (87-102); Mean Platelet Volume 10.2 FL (9.6-12.0); Monocytes % 10.9 % (1.7-12.7); Neutrophils % 75.7 % (38.7-73.9); Platelet Count 312 T/CUMM (130-400); Red Blood Count 3.76 MC/CUMM (3.8-5.5); Red Cell Distribution Width 19.3 % (9.3-17.3); White Blood Count 8.4 T/CUMM (4-12)
[2019-06-08] MEDS: KETOROLAC 15 MG/1 ML VIAL IV SCH ×4 (04:52→23:27)
[2019-06-08 05:09] LABS: Hypochromasia 1+; Ovalocytes Slight; Platelet Estimate Adequate
[2019-06-08] MEDS: GABAPENTIN 600 MG TABLET PO SCH ×2 (10:17→21:56)
[2019-06-08] MEDS: DULoxetine 30 MG CAPSULE PO SCH ×2 (10:17→21:35)
[2019-06-08] MEDS: busPIRone 10 MG TABLET PO SCH ×3 (10:17→21:34)
[2019-06-08] MEDS: levETIRAcetam 500 MG TABLET PO SCH ×2 (10:18→21:38)
[2019-06-08] MEDS: FAMOTIDINE 20 MG/2 ML VIAL IV SCH ×2 (10:18→21:47)
[2019-06-08] MEDS: ALPRAZolam 0.5 MG TABLET PO SCH ×3 (11:20→21:55)
[2019-06-08] MEDS: hydrALAZINE 20 MG/1 ML VIAL IV PRN (11:20)
[2019-06-08] MEDS: MUPIROCIN 2% OINT 22 GM TUBE TOP SCH ×2 (11:20→21:38)
[2019-06-08 12:09] LABS: Hematocrit 26.8 VOL% (42.0-52.0); Hemoglobin 7.7 GM/DL (14.0-18.0)
[2019-06-09] MEDS: ALPRAZolam 0.5 MG TABLET PO SCH ×2 (03:17→09:04)
[2019-06-09 05:00] LABS: Basophils % 0.3 % (0.0-0.8); Eosinophils # 0.6 10*3/uL (0.0-0.87); Eosinophils % 6.5 % (0.00-10.9); Hematocrit 26.6 VOL% (42.0-52.0); Hemoglobin 7.7 GM/DL (14.0-18.0); Immature Granulocytes % 0.4 %; Immature Granulocytes Absolute 0.04 #; Lymphocytes # 0.7 10*3/uL (1.4-4.0); Mean Corpuscular HGB Conc 28.9 GM/DL (32-36); Mean Corpuscular Volume 69.1 FL (87-102); Monocytes % 9.6 % (1.7-12.7); Neutrophils % 76.2 % (38.7-73.9); Platelet Count 325 T/CUMM (130-400); Red Blood Count 3.85 MC/CUMM (3.8-5.5); Red Cell Distribution Width 19.1 % (9.3-17.3); White Blood Count 9.3 T/CUMM (4-12)
[2019-06-09 05:20] LABS: Hypochromasia 1+; Ovalocytes Slight; Platelet Estimate Adequate
[2019-06-09] MEDS: KETOROLAC 15 MG/1 ML VIAL IV SCH ×2 (05:35→12:15)
[2019-06-09] MEDS: busPIRone 10 MG TABLET PO SCH (09:04)
[2019-06-09] MEDS: GABAPENTIN 600 MG TABLET PO SCH (09:04)
[2019-06-09] MEDS: DULoxetine 30 MG CAPSULE PO SCH (09:04)
[2019-06-09] MEDS: levETIRAcetam 500 MG TABLET PO SCH ×2 (09:04→09:06)
[2019-06-09] MEDS: MUPIROCIN 2% OINT 22 GM TUBE TOP SCH (09:05)
[2019-06-09] MEDS: FAMOTIDINE 20 MG/2 ML VIAL IV SCH (09:05)
[2019-06-09 11:45] VITALS: BP 168/84
== END 2019-06-09 15:35 | disposition home health service (06) | DRG 330 ==
LOC: N.OR 06:26 → N.SDSINP 06:27 → N.3E 14:15
PROVIDERS: ADMIT Surgery; ATTEND Surgery

== ENCOUNTER 2020-08-04 05:53 | Inpatient (IN) ==
[2020-08-04] MEDS ORDERED: ceFAZolin 1,000 MG VIAL ONE (05:54)
[2020-08-04] MEDS ORDERED: ROPIVACAINE 0.5% 30 ML VIAL ONE (06:25)
[2020-08-04] MEDS ORDERED: LIDOCAINE 2% 5 ML VIAL ONE ×2 (06:25→11:04)
[2020-08-04] MEDS ORDERED: DEXAMETHASONE 4 MG/1 ML VIAL ONE (06:26)
[2020-08-04] MEDS ORDERED: ceFAZolin 1,000 MG in SYRINGE 1 EACH IV ONE (06:30)
[2020-08-04] MEDS ORDERED: ALBUTEROL 2.5 MG/3 ML NEB RESP TX ONE (06:47)
[2020-08-04] MEDS ORDERED: BUPIVACAINE MPF 0.25% 30 ML VIAL ONE (06:49)
[2020-08-04] MEDS ORDERED: TISSUE ADHESIVE 1 EACH APPLICATOR TOP ONE (06:49)
[2020-08-04] MEDS ORDERED: LIDOCAINE 1%/EPI INJ 20 ML VIAL ONE (06:49)
[2020-08-04] MEDS: LACTATED RINGERS 1,000 ML IV SCH ×2 (06:55→11:47)
[2020-08-04 08:55] LABS: Bacteria,Urine Occasional /HPF (Few); Bilirubin,Urine Negative (Negative); Blood, Urine Small mg/dL (Negative); Glucose,Urine (UA) Negative (Negative); Hyaline Casts,Urine 1 /LPF (0-3); Ketones,Urine Negative (Negative); Nitrite,Urine Negative (Negative); Protein,Urine 30 MG/DL; RBC,Urine 9 /HPF (0-4); Urine Appearance CLEAR (Clear); Urine Color Yellow (Yellow); Urine Specific Gravity 1.008 (1.001-1.035); Urine Urobilinogen < 2.0 EU/DL (0.2-1.0); WBC,Urine 1 /HPF (0-6)
[2020-08-04] MEDS ORDERED: SUGAMMADEX 200 MG/2 ML VIAL IV ONE (10:10)
[2020-08-04] MEDS ORDERED: KETOROLAC 15 MG/1 ML VIAL IV PRN (10:46)
[2020-08-04] MEDS ORDERED: ACETAMINOPHEN 325 MG TABLET PO PRN (10:46)
[2020-08-04] MEDS ORDERED: ONDANSETRON 4 MG/2 ML VIAL IV PRN (10:46)
[2020-08-04] MEDS ORDERED: NALOXONE 0.4 MG/ML VIAL IV PRN (10:49)
[2020-08-04] MEDS ORDERED: SEVOFLURANE 1 UNIT/15 MINUTE INH ONE (11:04)
[2020-08-04] MEDS ORDERED: fentaNYL 250 MCG/5 ML VIAL ONE (11:04)
[2020-08-04] MEDS ORDERED: propofoL 200 MG/20 ML VIAL IV ONE (11:04)
[2020-08-04] MEDS ORDERED: ALBUMIN 5% 12.5 GM/250 ML VIAL IV ONE (11:04)
[2020-08-04] MEDS ORDERED: SODIUM CHLORIDE 0.9% 1,000 ML IV ONE (11:05)
[2020-08-04] MEDS ORDERED: LACTATED RINGERS 2,000 ML IV ONE (11:05)
[2020-08-04] MEDS ORDERED: MIDAZOLAM 2 MG/2 ML VIAL ONE (11:05)
[2020-08-04] MEDS ORDERED: SUCCINYLCHOLINE 200 MG/10 ML VIAL ONE (11:05)
[2020-08-04] MEDS ORDERED: ROCURONIUM 100 MG/10 ML VIAL IV ONE (11:05)
[2020-08-04] MEDS ORDERED: fentaNYL 100 MCG/2 ML VIAL ONE (11:05)
[2020-08-04] MEDS ORDERED: LABETALOL 100 MG/20 ML VIAL IV ONE ×2 (11:31→11:38)
[2020-08-04] MEDS: HYDROmorphone PCA 30 MG/30 ML SYRINGE IV SCH (14:01)
[2020-08-04] MEDS: cefOXitin 2,000 MG in SYRINGE 1 EACH IV SCH ×2 (14:08→21:15)
[2020-08-04] MEDS ORDERED: ceFAZolin 2,000 MG in PREMIX 1 EACH IV SCH (16:47)
[2020-08-05] MEDS: cefOXitin 2,000 MG in SYRINGE 1 EACH IV SCH ×4 (02:45→20:40)
[2020-08-05] MEDS ORDERED: ENOXAPARIN 40 MG/0.4 ML SYRINGE SUBCUT SCH (06:00)
[2020-08-05 07:27] LABS: Basophils % 0.1 % (0.0-0.8); Hematocrit 32.3 VOL% (42.0-52.0); Hemoglobin 9.9 GM/DL (14.0-18.0); Immature Granulocytes % 0.8 %; Immature Granulocytes Absolute 0.17 #; Lymphocytes # 1.1 10*3/uL (1.4-4.0); Lymphocytes % 5.1 % (21.2-54.2); Mean Corpuscular HGB Conc 30.7 GM/DL (32-36); Monocytes % 8.4 % (1.7-12.7); Neutrophils % 85.6 % (38.7-73.9); Platelet Count 435 T/CUMM (130-400); Red Blood Count 4.14 MC/CUMM (3.8-5.5); Red Cell Distribution Width 19.7 % (9.3-17.3); White Blood Count 21.6 T/CUMM (4-12)
[2020-08-05 07:34] LABS: Calcium 7.9 MG/DL (8.5-10.1); Osmolality,Calculated 282.4 MOS/KG (273-304)
[2020-08-05 07:49] LABS: Hypochromasia 1+; Microcytosis 1+; Ovalocytes Few
[2020-08-05 07:50] LABS: Platelet Estimate Increased
[2020-08-05] MEDS: PANTOPRAZOLE 40 MG TABLET PO SCH (08:40)
[2020-08-05] MEDS ORDERED: LACTATED RINGERS 1,000 ML IV ONE (10:58)
[2020-08-05] MEDS: HYDROmorphone PCA 30 MG/30 ML SYRINGE IV SCH (12:20)
[2020-08-05] MEDS: DEXTROSE 5% NACL 0.45% 1,000 ML IV SCH (14:30)
[2020-08-06] MEDS: cefOXitin 2,000 MG in SYRINGE 1 EACH IV SCH ×4 (01:59→20:47)
[2020-08-06] MEDS: ENOXAPARIN 30 MG/0.3 ML SYRINGE SUBCUT SCH (06:15)
[2020-08-06] MEDS: DEXTROSE 5% NACL 0.45% 1,000 ML IV SCH ×3 (06:17→19:17)
[2020-08-06 07:59] LABS: Basophils # 0.1 10*3/uL (0.0-0.2); Basophils % 0.3 % (0.0-0.8); Eosinophils # 0.1 10*3/uL (0.0-0.87); Eosinophils % 0.4 % (0.00-10.9); Hematocrit 28.8 VOL% (42.0-52.0); Immature Granulocytes % 0.8 %; Immature Granulocytes Absolute 0.12 #; Lymphocytes # 0.9 10*3/uL (1.4-4.0); Lymphocytes % 6.2 % (21.2-54.2); Mean Corpuscular HGB Conc 31.3 GM/DL (32-36); Mean Corpuscular Volume 76.4 FL (87-102); Mean Platelet Volume 10.3 FL (9.6-12.0); Monocytes % 9.8 % (1.7-12.7); Neutrophils % 82.5 % (38.7-73.9); Platelet Count 324 T/CUMM (130-400); Red Blood Count 3.77 MC/CUMM (3.8-5.5); Red Cell Distribution Width 19.9 % (9.3-17.3); White Blood Count 14.3 T/CUMM (4-12)
[2020-08-06 08:30] LABS: Calcium 6.8 MG/DL (8.5-10.1); Osmolality,Calculated 284.7 MOS/KG (273-304)
[2020-08-06] MEDS: PANTOPRAZOLE 40 MG TABLET PO SCH (10:16)
[2020-08-06] MEDS ORDERED: ALBUTEROL/IPRATROPIUM 3 ML NEB RESP TX ONE ×2 (12:53→22:48)
[2020-08-06] MEDS: ALBUTEROL/IPRATROPIUM 3 ML NEB RESP TX SCH ×2 (13:02→19:08)
[2020-08-06] MEDS: HYDROmorphone PCA 30 MG/30 ML SYRINGE IV SCH (16:45)
[2020-08-07] MEDS: ALBUTEROL/IPRATROPIUM 3 ML NEB RESP TX SCH (01:00)
[2020-08-07] MEDS: cefOXitin 2,000 MG in SYRINGE 1 EACH IV SCH ×4 (01:37→20:05)
[2020-08-07] MEDS: ENOXAPARIN 30 MG/0.3 ML SYRINGE SUBCUT SCH (05:52)
[2020-08-07 05:56] LABS: Basophils % 0.3 % (0.0-0.8); Eosinophils # 0.1 10*3/uL (0.0-0.87); Hematocrit 27.7 VOL% (42.0-52.0); Hemoglobin 8.6 GM/DL (14.0-18.0); Immature Granulocytes % 0.4 %; Immature Granulocytes Absolute 0.04 #; Lymphocytes # 0.6 10*3/uL (1.4-4.0); Lymphocytes % 5.7 % (21.2-54.2); Mean Corpuscular Volume 75.9 FL (87-102); Mean Platelet Volume 10.2 FL (9.6-12.0); Monocytes % 11.8 % (1.7-12.7); Neutrophils % 80.8 % (38.7-73.9); Platelet Count 274 T/CUMM (130-400); Red Blood Count 3.65 MC/CUMM (3.8-5.5); Red Cell Distribution Width 19.5 % (9.3-17.3); White Blood Count 9.6 T/CUMM (4-12)
[2020-08-07 06:17] LABS: Hypochromasia 1+; Microcytosis 1+; Platelet Estimate Adequate
[2020-08-07 06:32] LABS: Calcium 6.9 MG/DL (8.5-10.1); Osmolality,Calculated 279.1 MOS/KG (273-304)
[2020-08-07 06:34] LABS: Albumin 2.3 G/DL (3.4-5.0); Bilirubin,Total 0.8 MG/DL (0.2-1.0)
[2020-08-07] MEDS ORDERED: hydrOXYzine HCL 25 MG TABLET PO PRN (08:29)
[2020-08-07] MEDS: lamoTRIgine 100 MG TABLET PO SCH ×2 (10:12→21:42)
[2020-08-07] MEDS: FUROSEMIDE 20 MG TABLET PO SCH ×2 (10:13→16:21)
[2020-08-07] MEDS: levETIRAcetam 500 MG TABLET PO SCH ×2 (10:13→21:42)
[2020-08-07] MEDS: DULoxetine 30 MG CAPSULE PO SCH ×2 (10:13→21:41)
[2020-08-07] MEDS: ALPRAZolam 0.5 MG TABLET PO SCH ×3 (10:13→21:39)
[2020-08-07] MEDS: busPIRone 5 MG TABLET PO SCH ×3 (10:14→21:42)
[2020-08-07] MEDS: LURASIDONE 40 MG TABLET PO SCH (10:14)
[2020-08-07] MEDS: PANTOPRAZOLE 40 MG TABLET PO SCH (10:14)
[2020-08-07] MEDS: POTASSIUM CHLORIDE 20 MEQ TABLET PO SCH (10:15)
[2020-08-07] MEDS: HYDROmorphone 2 MG/1 ML VIAL IV PRN (10:16)
[2020-08-07] MEDS: GABAPENTIN 300 MG CAPSULE PO SCH ×2 (10:27→21:41)
[2020-08-07] MEDS: DEXTROSE 5% NACL 0.45% 1,000 ML IV SCH (10:30)
[2020-08-07] MEDS ORDERED: POTASSIUM CHLORIDE 20 MEQ TABLET PO ONE (13:13)
[2020-08-07] MEDS: SODIUM CHLOR 0.45% KCL 20 MEQ 20 MEQ/1,000 ML BAG IV SCH ×2 (15:30→22:32)
[2020-08-07] MEDS: ALBUTEROL/IPRATROPIUM 3 ML NEB RESP TX PRN (17:30)
[2020-08-08] MEDS: DEXTROSE 5% NACL 0.45% 1,000 ML IV SCH (02:22)
[2020-08-08] MEDS: cefOXitin 2,000 MG in SYRINGE 1 EACH IV SCH ×2 (03:00→08:45)
[2020-08-08] MEDS: ENOXAPARIN 30 MG/0.3 ML SYRINGE SUBCUT SCH (05:44)
[2020-08-08 06:27] LABS: Basophils % 0.2 % (0.0-0.8); Eosinophils # 0.2 10*3/uL (0.0-0.87); Eosinophils % 2.4 % (0.00-10.9); Hematocrit 28.1 VOL% (42.0-52.0); Hemoglobin 8.9 GM/DL (14.0-18.0); Immature Granulocytes % 0.6 %; Immature Granulocytes Absolute 0.05 #; Lymphocytes # 0.8 10*3/uL (1.4-4.0); Lymphocytes % 9.7 % (21.2-54.2); Mean Corpuscular HGB Conc 31.7 GM/DL (32-36); Mean Corpuscular Volume 75.7 FL (87-102); Mean Platelet Volume 10.4 FL (9.6-12.0); Monocytes % 10.2 % (1.7-12.7); Neutrophils % 76.9 % (38.7-73.9); Platelet Count 299 T/CUMM (130-400); Red Blood Count 3.71 MC/CUMM (3.8-5.5); Red Cell Distribution Width 19.7 % (9.3-17.3); White Blood Count 8.3 T/CUMM (4-12)
[2020-08-08 06:49] LABS: Calcium 6.9 MG/DL (8.5-10.1); Osmolality,Calculated 283.4 MOS/KG (273-304)
[2020-08-08] MEDS: busPIRone 5 MG TABLET PO SCH ×2 (08:46→14:00)
[2020-08-08] MEDS: POTASSIUM CHLORIDE 20 MEQ TABLET PO SCH (08:46)
[2020-08-08] MEDS: DULoxetine 30 MG CAPSULE PO SCH (08:46)
[2020-08-08] MEDS: FUROSEMIDE 20 MG TABLET PO SCH ×2 (08:46→15:51)
[2020-08-08] MEDS: LURASIDONE 40 MG TABLET PO SCH (08:47)
[2020-08-08] MEDS: GABAPENTIN 300 MG CAPSULE PO SCH (08:47)
[2020-08-08] MEDS: lamoTRIgine 100 MG TABLET PO SCH (08:47)
[2020-08-08] MEDS: levETIRAcetam 500 MG TABLET PO SCH (08:47)
[2020-08-08] MEDS: ALPRAZolam 0.5 MG TABLET PO SCH ×2 (08:48→14:01)
[2020-08-08] MEDS: PANTOPRAZOLE 40 MG TABLET PO SCH (08:49)
[2020-08-08] MEDS: ALBUTEROL/IPRATROPIUM 3 ML NEB RESP TX PRN ×2 (09:06→17:14)
[2020-08-08] MEDS ORDERED: LIDOCAINE 1%/EPI INJ 20 ML VIAL ONE (09:14)
[2020-08-08] MEDS ORDERED: SUGAMMADEX 200 MG/2 ML VIAL IV ONE (10:09)
[2020-08-08] MEDS ORDERED: SEVOFLURANE 1 UNIT/15 MINUTE INH ONE (10:38)
[2020-08-08] MEDS ORDERED: LIDOCAINE 2% 5 ML VIAL ONE (10:38)
[2020-08-08] MEDS ORDERED: fentaNYL 100 MCG/2 ML VIAL ONE (10:38)
[2020-08-08] MEDS ORDERED: MIDAZOLAM 2 MG/2 ML VIAL ONE (10:38)
[2020-08-08] MEDS ORDERED: propofoL 200 MG/20 ML VIAL IV ONE (10:38)
[2020-08-08] MEDS ORDERED: ROCURONIUM 100 MG/10 ML VIAL IV ONE (10:39)
[2020-08-08] MEDS ORDERED: SUCCINYLCHOLINE 200 MG/10 ML VIAL ONE (10:39)
[2020-08-08] MEDS ORDERED: ONDANSETRON 4 MG/2 ML VIAL ONE (10:39)
[2020-08-08] MEDS ORDERED: PHENYLEPHRINE 10 MG/1 ML VIAL IV ONE (10:39)
[2020-08-08] MEDS ORDERED: POTASSIUM CHLORIDE INJ 40 MEQ in SODIUM CHLORIDE 0.45% 1,000 ML IV SCH (12:30)
[2020-08-08] MEDS: HYDROmorphone 2 MG/1 ML VIAL IV PRN (15:53)
[2020-08-08 17:25] VITALS: BP 147/79
[2020-08-08] MEDS ORDERED: cefOXitin 2,000 MG in SYRINGE 1 EACH IV SCH (21:00)
== END 2020-08-08 19:20 | disposition home health service (06) | DRG 353 ==
LOC: N.SDSINP 05:53 → EDSTATUS 07:30 → N.4E 12:10
PROVIDERS: ADMIT Surgery; ATTEND Surgery